=== PATIENT | male | born 1960 | race Caucasian/White ===

== ENCOUNTER 2019-02-01 20:02 | Emergency (ER) | payer BC ==
[2019-02-01] MEDS ORDERED: Sodium Chloride 0.9% 2.5 ML Syringe FLUSH PRN (20:10)
[2019-02-01] MEDS ORDERED: Sodium Chloride 0.9% 10 ML Syringe FLUSH PRN (20:10)
[2019-02-01] MEDS ORDERED: Sodium Chloride 0.9% 1,000 ML IV ONE ×2 (20:12→20:39)
[2019-02-01] MEDS ORDERED: Aspirin 81 MG Tab.Chew PO ONE (20:12)
--- NOTE | 2019-02-01 20:16 | EDM.PDOC ---
ED HPI GENERAL MEDICAL PROBLEM - General Stated Complaint: PT COLLAPSED Time Seen by Provider: 02/01/19 20:03 - History of Present Illness INITIAL COMMENTS - FREE TEXT/NARRATIVE: HISTORY AND PHYSICAL: History of present illness: The patient is a 58-year-old male who follows at [facility] with Dr. Oakley and has a history of hypertension and hypercholesterolemia and presents via EMS after having an episode of chest discomfort which radiated to his neck and his left arm associated with left upper extremity and lower extremity tingling without weakness and lightheadedness. He says that he had a perfectly normal day with no systemic issues and ate normally throughout the day and the symptoms started approximately half an hour ago. He did not pass out or blacked out but did feel like he might do that. He currently has no chest pain no arm or leg tingling numbness or weakness and no neck pain. He says he never had pain in his back or abdomen he had no nausea no vomiting no recent diarrhea or abdominal issues. He does not smoke and only occasionally drinks and has no drug use. He has no significant family history for cardiac disease. He's had no recent changes in his blood pressure medications and says that throughout the day yet today he had no fevers chills no recent trauma and 8ate and drink normally with normal urine output. He's had no black or bloody stools recently and no GI history. He currently is asymptomatic in the ED despite his hypotension. EMS did an Accu-Chek in the field which was within normal limits. As no neck or back pain and never passed out blacked out or had any trauma with tonight's events nor did he fall. He currently has no chest pain no shortness of breath and says that he feels at his baseline. The patient says he is very active and has never had chest pain palpitations or shortness of breath with activity and he had no palpitations this evening. He says he has never had any cardiac testing in the past. The patient says he did not take any extra of his blood pressure medication today nor has his provider in the clinic change that dosing recently. Review of systems: As per history of present illness and below otherwise all systems reviewed and negative. Past medical history: As per history of present illness and as reviewed below otherwise noncontributory. Surgical history: As per history of present illness and as reviewed below otherwise noncontributory. Social history: No reported history of drug or alcohol abuse. Family history: As per history of present illness and as reviewed below otherwise noncontributory. Physical exam: General: Well-developed well-nourished thin man who is nontoxic and vital signs are noted by me. He speaking clearly and easily in the ED without distress HEENT: Atraumatic, normocephalic, pupils reactive, negative for conjunctival pallor or scleral icterus, mucous membranes moist, throat clear, neck supple, nontender, trachea midline. Lungs: Clear to auscultation, breath sounds equal bilaterally, chest nontender. Heart: S1S2, regular, negative for clicks, rubs, or JVD. Abdomen: Soft, nondistended, nontender. Negative for masses or hepatosplenomegaly. Negative for costovertebral tenderness. Pelvis: Stable nontender. Genitourinary: Deferred. Rectal: Deferred. Extremities: Atraumatic, negative for cords or calf pain. Neurovascular unremarkable. No pedal edema or leg asymmetry Neuro: Awake, alert, oriented. Cranial nerves II through XII unremarkable. Cerebellum unremarkable. Motor and sensory unremarkable throughout. Exam nonfocal. Diagnostics: EKG x 2 and rhythm strip CBC CMP INR troponin x 2,TSH lactic acid chest x-ray CT head Therapeutics: IV O2 monitor IV fluids aspirin Zofran Patient absolutely denies any black or bloody stools and has no GI history. He again denies any history of trauma with these events as well as in the last several days. He has not had any vomiting diarrhea fevers or chills or any systemic issues prior to 20 minutes for coming to the ER. His blood pressure is responding to IV fluid bolus and his EKG and rhythm strip reveal a slight prolongation of the HI consistent with a slight first-degree AV block. He is bradycardic. Nursing alerted me that the patient was having an episode of new chest pain which was accompanied with some discomfort in his back and he seemed to be diaphoretic and shaky with that. Patient has remained on the hypotensive side with systolics in the 70s and 80s despite 2 L of fluid. An EKG was performed with this episode and reviewed by me which shows no acute STEMI changes. On my reevaluation of him he currently is not having any chest pain or back pain and feels back to his baseline. He is not diaphoretic or shaky. Will proceed to do CTA of the chest abdomen and pelvis and he is aware as is his at bedside that all tests at this point are coming up negative but that he will still be admitted to the hospital pending the results of the CTA. Patient is aware that he will be going to CT scan and now says he feels somewhat nauseated so I will order Zofran. We'll continue with IV fluids Patient has returned from CAT scan and he says he just feels generalized weakness. After 2-1/2 L of fluid he has not made any urine and I've encouraged him to please give me a urine sample so we can ascertain whether or not dehydration is a component of this area we will continue to give him an IV fluid rate until we get the CTAs results back. 2220: CTA scan results are pending but I did discuss this case with our hospitalist Dr. Robert who is also lost about what this could be. I told him I will recontact him if the second troponin UA or CT scans show any significant findings but we will plan on ICU admission for unclear etiology of these symptoms. He states agreement. 2248: After the CTA results were called to me by the radiologist Dr. Ordoñez I immediately contacted [facility], as [facility] does not have a CV surgeon, and spoke with the cardiothoracic surgeon Dr. Villeda about this case. He agrees that the patient needs emergent transfer as he has a type A dissection. I am working on flight team and these test results were conveyed to the patient and family at bedside. They are aware of the severity of this and that this is a life-threatening problem that needs emergent intervention. We will continue to manage the patient's symptoms. The patient and family are aware of the difficulties we are having with getting a flight team and the weather as helicopter cannot travel. Dr Krishnamurthy will be updated via One call about the patient's ETA. Critical care time including procedures:40min Impression: Type A aortic dissection Definitive disposition and diagnosis as appropriate pending reevaluation and review of above. neck;head Pain Score (Numeric/FACES): 3 - Related Data Allergies Allergy/AdvReac Type Severity Reaction Status Date / Time No Known Allergies Allergy Verified 12/13/15 11:17 Home Meds: Home Meds Famotidine 20 mg PO DAILY 12/13/15 [History] Lisinopril/Hydrochlorothiazide [Lisinopril-Hctz 20-12.5 mg Tab] 1 tab PO DAILY 12/13/15 [History] atorvaSTATin Calcium [Atorvastatin Calcium] 10 mg PO DAILY 12/13/15 [History] Past Medical History HEENT History: Reports: None Cardiovascular History: Reports: High Cholesterol, Hypertension Respiratory History: Reports: None Gastrointestinal History: Genitourinary History: Reports: None Neurological History: Reports: None Psychiatric History: Reports: None Endocrine/Metabolic History: Reports: None Hematologic History: Reports: None Immunologic History: Reports: None Oncologic (Cancer) History: Reports: None Dermatologic History: Reports: None - Past Surgical History GI Surgical History: Reports: Hernia, Inguinal Musculoskeletal Surgical History: Reports: Arthroscopic Knee ED ROS GENERAL - Review of Systems Review Of Systems: ROS reveals no pertinent complaints other than HPI. ED EXAM, GENERAL - Physical Exam Exam: See Below (see Dictation) Course - Vital Signs Last Recorded V/S: Last Vital Signs Temp 36.1 C 02/01/19 20:02 Pulse 63 02/01/19 22:16 Resp 16 02/01/19 22:16 BP 91/42 L 02/01/19 22:16 Pulse Ox 97 02/01/19 20:43 - Orders/Labs/Meds Orders: Active Orders 24 hr Category Date Time Status Cardiac Monitoring [RC] . DIRECTED Care 02/01/19 20:10 Active Communication Order [RC] STAT Care 02/01/19 20:28 Active Communication Order [RC] STAT Care 02/01/19 20:28 Active EKG Documentation Completion [RC] STAT Care 02/01/19 20:10 Active Oxygen Therapy, ED [RC] ASDIRECTED Care 02/01/19 20:10 Active Pulse Oximetry [RC] ASDIRECTED Care 02/01/19 20:10 Active Ang Chest [CT] Stat Exams 02/01/19 21:26 Ordered Ang Pelvis [CT] Stat Exams 02/01/19 21:26 Ordered TROPONIN I [CHEM] Stat Lab 02/01/19 22:42 Received UA RFX MACKENZIE AND CULT IF INDIC [URIN] Stat Lab 02/01/19 20:11 Ordered Sodium Chloride 0.9% [Normal Saline] 1,000 ml Med 02/01/19 22:15 Active IV ASDIRECTED Sodium Chloride 0.9% [Normal Saline] 500 ml Med 02/01/19 21:30 Active IV .BOLUS Sodium Chloride 0.9% [Saline Flush] Med 02/01/19 20:10 Active 10 ml FLUSH ASDIRECTED PRN Sodium Chloride 0.9% [Saline Flush] Med 02/01/19 20:10 Active 2.5 ml FLUSH ASDIRECTED PRN Saline Lock Insert [OM.PC] Stat Oth 02/01/19 20:10 Ordered Medication Orders Sodium Chloride (Normal Saline) 500 mls @ 999 mls/hr IV .BOLUS KASSIE Last Admin: 02/01/19 21:34 Dose: 999 mls/hr Sodium Chloride (Normal Saline) 1,000 mls @ 250 mls/hr IV ASDIRECTED KASSIE Last Admin: 02/01/19 22:13 Dose: 250 mls/hr Sodium Chloride (Saline Flush) 10 ml FLUSH ASDIRECTED PRN PRN Reason: Keep Vein Open Last Admin: 02/01/19 21:41 Dose: 10 ml Sodium Chloride (Saline Flush) 2.5 ml FLUSH ASDIRECTED PRN PRN Reason: Keep Vein Open Last Admin: 02/01/19 21:42 Dose: 2.5 ml Labs: Laboratory Tests 02/01/19 02/01/19 02/01/19 Range/Units 20:10 20:10 20:10 WBC 8.16 (4.0-11.0) K/uL RBC 3.92 L (4.50-5.90) M/uL Hgb 12.3 L (13.0-17.0) g/dL Hct 36.2 L (38.0-50.0) % MCV 92.3 (80.0-98.0) fL MCH 31.4 (27.0-32.0) pg MCHC 34.0 (31.0-37.0) g/dL RDW Std Deviation 42.7 (28.0-62.0) fl RDW Coeff of Daniel 13 (11.0-15.0) % Plt Count 198 (150-400) K/uL MPV 10.50 (7.40-12.00) fL Neut % (Auto) 45.8 L (48.0-80.0) % Lymph % (Auto) 39.1 (16.0-40.0) % Saline % (Auto) 10.8 (0.0-15.0) % Eos % (Auto) 3.8 (0.0-7.0) % Baso % (Auto) 0.5 (0.0-1.5) % Neut # (Auto) 3.7 (1.4-5.7) K/uL Lymph # (Auto) 3.2 H (0.6-2.4) K/uL Saline # (Auto) 0.9 H (0.0-0.8) K/uL Eos # (Auto) 0.3 (0.0-0.7) K/uL Baso # (Auto) 0.0 (0.0-0.1) K/uL Nucleated RBC % 0.0 /100WBC Nucleated RBCs # 0 K/uL INR 1.03 Lactate 1.5 (0.20-2.00) mmol/L Sodium (136-148) mmol/L Potassium (3.5-5.1) mmol/L Chloride (98-107) mmol/L Carbon Dioxide (21.0-32.0) mmol/L BUN (7.0-18.0) mg/dL Creatinine (0.8-1.3) mg/dL Est Cr Clr Drug Dosing mL/min Estimated GFR (MDRD) ml/min Glucose (74-106) mg/dL Calcium (8.5-10.1) mg/dL Total Bilirubin (0.2-1.0) mg/dL AST (15-37) IU/L ALT (14-63) IU/L Alkaline Phosphatase (46-116) U/L Troponin I (0.000-0.056) ng/mL Total Protein (6.4-8.2) g/dL Albumin (3.4-5.0) g/dL Globulin (2.6-4.0) g/dL Albumin/Globulin Ratio (0.9-1.6) TSH 3rd Generation (0.36-3.74) uIU/mL 02/01/19 Range/Units 20:10 WBC (4.0-11.0) K/uL RBC (4.50-5.90) M/uL Hgb (13.0-17.0) g/dL Hct (38.0-50.0) % MCV (80.0-98.0) fL MCH (27.0-32.0) pg MCHC (31.0-37.0) g/dL RDW Std Deviation (28.0-62.0) fl RDW Coeff of Daniel (11.0-15.0) % Plt Count (150-400) K/uL MPV (7.40-12.00) fL Neut % (Auto) (48.0-80.0) % Lymph % (Auto) (16.0-40.0) % Saline % (Auto) (0.0-15.0) % Eos % (Auto) (0.0-7.0) % Baso % (Auto) (0.0-1.5) % Neut # (Auto) (1.4-5.7) K/uL Lymph # (Auto) (0.6-2.4) K/uL Saline # (Auto) (0.0-0.8) K/uL Eos # (Auto) (0.0-0.7) K/uL Baso # (Auto) (0.0-0.1) K/uL Nucleated RBC % /100WBC Nucleated RBCs # K/uL INR Lactate (0.20-2.00) mmol/L Sodium 143 (136-148) mmol/L Potassium 3.7 (3.5-5.1) mmol/L Chloride 105 (98-107) mmol/L Carbon Dioxide 28.1 (21.0-32.0) mmol/L BUN 18 (7.0-18.0) mg/dL Creatinine 1.0 (0.8-1.3) mg/dL Est Cr Clr Drug Dosing 88.38 mL/min Estimated GFR (MDRD) > 60.0 ml/min Glucose 97 (74-106) mg/dL Calcium 8.6 (8.5-10.1) mg/dL Total Bilirubin 0.3 (0.2-1.0) mg/dL AST 17 (15-37) IU/L ALT 19 (14-63) IU/L Alkaline Phosphatase 65 (46-116) U/L Troponin I < 0.050 (0.000-0.056) ng/mL Total Protein 6.1 L (6.4-8.2) g/dL Albumin 3.2 L (3.4-5.0) g/dL Globulin 2.9 (2.6-4.0) g/dL Albumin/Globulin Ratio 1.1 (0.9-1.6) TSH 3rd Generation 2.00 (0.36-3.74) uIU/mL Meds: Medications Generic Name Dose Route Start Last Admin Trade Name Juwanq PRN Reason Stop Dose Admin Sodium Chloride 500 mls @ 999 mls/hr 02/01/19 21:30 02/01/19 21:34 Normal Saline IV 999 mls/hr .BOLUS KASSIE Administration Sodium Chloride 1,000 mls @ 250 mls/hr 02/01/19 22:15 02/01/19 22:13 Normal Saline IV 250 mls/hr ASDIRECTED KASSIE Administration Sodium Chloride 10 ml 02/01/19 20:10 02/01/19 21:41 Saline Flush FLUSH 10 ml ASDIRECTED PRN Administration Keep Vein Open Sodium Chloride 2.5 ml 02/01/19 20:10 02/01/19 21:42 Saline Flush FLUSH 2.5 ml ASDIRECTED PRN Administration Keep Vein Open Discontinued Medications Generic Name Dose Route Start Last Admin Trade Name Juwanq PRN Reason Stop Dose Admin Aspirin 324 mg 02/01/19 20:12 02/01/19 20:20 Aspirin PO 02/01/19 20:13 324 mg ONETIME ONE Administration Sodium Chloride 1,000 mls @ 999 mls/hr 02/01/19 20:12 02/01/19 20:20 Normal Saline IV 02/01/19 21:12 999 mls/hr STAT ONE Administration Sodium Chloride 1,000 mls @ 999 mls/hr 02/01/19 20:39 02/01/19 20:41 Normal Saline IV 02/01/19 21:39 999 mls/hr STAT ONE Administration Iopamidol 100 ml 02/01/19 22:08 02/01/19 22:09 Isovue Multipack-370 (76%) IVPUSH 02/01/19 22:09 100 ml ONETIME ONE Administration Ondansetron HCl 4 mg 02/01/19 21:30 02/01/19 21:34 Zofran IVPUSH 02/01/19 21:31 4 mg ONETIME ONE Administration Departure - Departure Time of Disposition: 23:08 Disposition: DC/Tfer to Acute Hospital 02 Condition: Critical Clinical Impression: Aortic dissection Qualifiers: Aortic location: thoracoabdominal aorta Qualified Code(s): I71.03 - Dissection of thoracoabdominal aorta - Discharge Information Referrals: PCP,None [Primary Care Provider] - - My Orders Last 24 Hours: My Active Orders 02/01/19 20:10 Cardiac Monitoring [RC] . DIRECTED EKG Documentation Completion [RC] STAT Oxygen Therapy, ED [RC] ASDIRECTED Pulse Oximetry [RC] ASDIRECTED Sodium Chloride 0.9% [Saline Flush] 10 ml FLUSH ASDIRECTED PRN Sodium Chloride 0.9% [Saline Flush] 2.5 ml FLUSH ASDIRECTED PRN Saline Lock Insert [OM.PC] Stat 02/01/19 20:11 UA RFX MACKENZIE AND CULT IF INDIC [URIN] Stat 02/01/19 20:28 Communication Order [RC] STAT Communication Order [RC] STAT 02/01/19 21:26 Ang Chest [CT] Stat Ang Pelvis [CT] Stat 02/01/19 21:30 Sodium Chloride 0.9% [Normal Saline] 500 ml IV .BOLUS 02/01/19 22:15 Sodium Chloride 0.9% [Normal Saline] 1,000 ml IV ASDIRECTED 02/01/19 22:42 TROPONIN I [CHEM] Stat - Assessment/Plan Last 24 Hours: My Active Orders 02/01/19 20:10 Cardiac Monitoring [RC] . DIRECTED EKG Documentation Completion [RC] STAT Oxygen Therapy, ED [RC] ASDIRECTED Pulse Oximetry [RC] ASDIRECTED Sodium Chloride 0.9% [Saline Flush] 10 ml FLUSH ASDIRECTED PRN Sodium Chloride 0.9% [Saline Flush] 2.5 ml FLUSH ASDIRECTED PRN Saline Lock Insert [OM.PC] Stat 02/01/19 20:11 UA RFX MACKENZIE AND CULT IF INDIC [URIN] Stat 02/01/19 20:28 Communication Order [RC] STAT Communication Order [RC] STAT 02/01/19 21:26 Ang Chest [CT] Stat Ang Pelvis [CT] Stat 02/01/19 21:30 Sodium Chloride 0.9% [Normal Saline] 500 ml IV .BOLUS 02/01/19 22:15 Sodium Chloride 0.9% [Normal Saline] 1,000 ml IV ASDIRECTED 02/01/19 22:42 TROPONIN I [CHEM] Stat
[2019-02-01 20:54] LABS: BLOOD UREA NITROGEN,BUN 18 mg/dL (7.0-18.0); CARBON DIOXIDE,CO2 28.1 mmol/L (21.0-32.0); CHLORIDE,CL 105 mmol/L (98-107); GLUCOSE RANDOM 97 mg/dL (74-106); POTASSIUM,K 3.7 mmol/L (3.5-5.1); SODIUM,NA 143 mmol/L (136-148)
--- NOTE | 2019-02-01 20:58 | CT ---
INDICATION: Left-sided paresthesia TECHNIQUE: Head CT without contrast. COMPARISON: None. FINDINGS: CSF spaces: Within normal limits for age. Brain parenchyma: Normal ruiz-white junction. No sign of mass, hemorrhage, or midline shift. Skull base and calvarium: The visualized paranasal sinuses and mastoid air cells demonstrate no acute or significant findings. The visualized orbits are grossly unremarkable. No skull fractures. IMPRESSION: No acute abnormality. Please note that all CT scans at this facility use dose modulation, iterative reconstruction, and/or weight-based dosing when appropriate to reduce radiation dose to as low as reasonably achievable. Dictated by Diana Ordoñez MD @ Feb 01 2019 8:57PM Signed by Dr. Diana Ordoñez @ Feb 01 2019 8:57PM
--- NOTE | 2019-02-01 21:04 | CR ---
INDICATION: Chest pain and dyspnea TECHNIQUE: Chest 1 view COMPARISON: None FINDINGS: Cardiovascular and mediastinum: Heart size and vasculature are normal in caliber and appearance. Lungs and pleural spaces: Lungs are clear. No sign of infiltrate or mass. No sign of pleural effusion. No pneumothorax. Bones and soft tissues: No significant findings. IMPRESSION: Unremarkable single view chest. Dictated by Florentino Catsañeda MD @ Feb 01 2019 9:02PM Signed by Dr. Florentino Castañeda @ Feb 01 2019 9:03PM
[2019-02-01] MEDS ORDERED: Ondansetron 4 MG/2 ML SDV IVPUSH ONE (21:30)
[2019-02-01] MEDS ORDERED: Sodium Chloride 0.9% 500 ML IV SCH (21:30)
[2019-02-01] MEDS ORDERED: Iopamidol 755 MG/ML 500 ML Multipack Bottle IVPUSH ONE (22:08)
[2019-02-01] MEDS ORDERED: Sodium Chloride 0.9% 1,000 ML IV SCH (22:15)
[2019-02-02 00:22] VITALS: BP 91/46; PULSE 62
--- NOTE | 2019-02-02 12:31 | CT ---
INDICATION: Chest pain TECHNIQUE: CT chest without contrast and CT chest, abdomen and pelvis acquired with IV contrast, dissection protocol. COMPARISON: None FINDINGS: Vascular structures: Type A dissection. The dissection starts at the aortic root. Ascending aorta is dilated to 5.9 x 7.1 cm. The dissection extends into the innominate and right common carotid arteries as well as the proximal left common carotid artery, the left subclavian artery, and the left axillary artery. The dissection continues into the descending thoracic aorta and into the abdominal aorta. The dissection involves the proximal (less than 1 cm) portions of the celiac axis and superior mesenteric artery. The remainder of those arteries are supplied by the true lumen of the dissection. The left renal artery arises from the false lumen. The right renal artery arises from the true lumen. The inferior mesenteric artery appears to arise from the true lumen. The dissection continues into the left common and external iliac arteries. The left femoral artery is not affected nor is the right common iliac, right external iliac, or bilateral internal iliac arteries. There is no hemopericardium. The cardiac size is normal. The lungs and pleural spaces are clear. Simple cysts are seen on both kidneys. The liver, gallbladder, spleen, adrenal glands, pancreas, bowel, and urinary bladder are normal in appearance. There is no free air or free fluid. No acute osseous abnormality. IMPRESSION: Type A dissection as described in detail above. These findings were discussed with Dr. Rosen at 10:45 p.m. on February 01, 2019. Please note that all CT scans at this facility use dose modulation, iterative reconstruction, and/or weight-based dosing when appropriate to reduce radiation dose to as low as reasonably achievable. Dictated by Diana Ordoñez MD @ Feb 01 2019 10:33PM Signed by: Diana Ordoñez MD @02/01/2019 10:56:05 PM (Electronic Signature) MTDD
== END 2019-02-01 23:41 ==
LOC: MW.ED 20:02
DX: I71.03 Dissection of thoracoabdominal aorta (principal); I10 Essential (primary) hypertension; E78.00 Pure hypercholesterolemia, unspecified; Z79.899 Other long term (current) drug therapy
CPT/HCPCS: 36415; 70450; 71045; 71275; 72191; 74175; 80053; 81001; 83605; 84443; 84484; 85025; 85610; 93005; 96361; 96374; 99291; 99292; A9270; J2405; J7040; Q9967; 99285

== ENCOUNTER 2019-02-14 12:15 | Observation (INO) | payer BC ==
[2019-02-14] MEDS ORDERED: Sodium Chloride 0.9% 1,000 ML IV ONE (12:31)
[2019-02-14 12:53] LABS: BLOOD UREA NITROGEN,BUN 22 mg/dL (7.0-18.0); CARBON DIOXIDE,CO2 26.4 mmol/L (21.0-32.0); CHLORIDE,CL 95 mmol/L (98-107); GLUCOSE RANDOM 129 mg/dL (74-106); POTASSIUM,K 5.1 mmol/L (3.5-5.1); SODIUM,NA 129 mmol/L (136-148)
--- NOTE | 2019-02-14 13:06 | CR ---
Indication: Shortness of breath. Recent dissection Technique: Single AP portable view of the chest was obtained. Comparison: February 01, 2019. Findings: Median sternotomy wires are identified. The heart is enlarged. Bilateral pleural effusions are identified, greater on the left than the right. The right hemidiaphragm is elevated, new. No pneumothorax is identified. Impression: No elevation of the right hemidiaphragm. Bilateral lower lobe atelectasis and/or infiltrates and bilateral pleural effusions, greater on the left than the right. Increasing cardiomegaly, which may be due to technical differences Dictated by Rebecca Mathews MD @ Feb 14 2019 1:03PM Signed by Dr. Rebecca Mathews @ Feb 14 2019 1:05PM
--- NOTE | 2019-02-14 13:06 | EDM.PDOC ---
ED HPI GENERAL MEDICAL PROBLEM - General Chief Complaint: Respiratory Problem Stated Complaint: TROUBLE BREATHING Time Seen by Provider: 02/14/19 12:21 Source of Information: Reports: Patient History Limitations: Reports: No Limitations - History of Present Illness INITIAL COMMENTS - FREE TEXT/NARRATIVE: HISTORY AND PHYSICAL: History of present illness: Patient is a 58-year-old male who presents to the ED today with concern of shortness of breath. Patient was seen in our ED on 02/01/19 and was life flighted to [facility] for a Type A Aortic Dissection and had emergent surgery upon arrival to [place]. Patient states that he was discharged on . Patient states since he has been discharged, he has noticed that he is more shortness of breath which is worse with moving/waling and exertion. Patient states he used to be able to walk around his house right after discharge , and now becomes more short of breath walking to the bathroom. Patient states he does notice he also has to sleep sitting up because he does become short of breath when he lays back. Patient denies any chest pain or any other symptoms or concerns. Patient denies fever, chills, chest pain, or cough. Denies headache, neck stiff ness, change in vision, syncope, or near syncope. Denies nausea, vomiting, abdominal pain, diarrhea, constipation, or dysuria. Has not noted any blood in urine or stool. Patient has been eating and drinking appropriately. Review of systems: As per history of present illness and below otherwise all systems reviewed and negative. Past medical history: As per history of present illness and as reviewed below otherwise noncontributory. Surgical history: As per history of present illness and as reviewed below otherwise noncontributory. Social history: See social history for further information Family history: As per history of present illness and as reviewed below otherwise noncontributory. Physical exam: General: Patient is alert, oriented, and in no acute distress. Patient sitting comfortably on exam table. HEENT: Atraumatic, normocephalic, pupils equal and reactive bilaterally, negative for conjunctival pallor or scleral icterus, mucous membranes moist, TMs normal bilaterally, throat clear, neck supple, nontender, trachea midline. No drooling or trismus noted. No meningeal signs. No hot potato voice noted. Lungs: Diminished but clear to auscultation, breath sounds equal bilaterally, chest nontender. Does become short of breath when laying flat. Heart: Distant, but S1S2, regular rate and rhythm without overt murmur Abdomen: Incisions consistent with recent surgical history. No erythema or drainage from incision sites. Soft, nondistended, nontender. Negative for masses or hepatosplenomegaly. Negative for costovertebral tenderness. Pelvis: Stable nontender. Genitourinary: Deferred. Rectal: Deferred. Skin: Intact, warm, dry. No lesions or rashes noted. Extremities: Atraumatic, negative for cords or calf pain. Neurovascular unremarkable. PATSY hose in place. Neuro: Awake, alert, oriented. Cranial nerves II through XII unremarkable. Cerebellum unremarkable. Motor and sensory unremarkable throughout. Exam nonfocal. Notes: Dr. Rucker verbally involved in patient care. I did call him personally speak to patient's cardiothoracic surgeon, Dr. Villeda and update him on lab work and results today. He states that the troponin as well as the CHF is quite common for the surgery patient had. Per Dr. Villeda's request would be to receive an ECHO and he has no other recommendations or concerns. Dr. Key consulted on patient and has come in to personally see the patient. Will admit to observation Voices understanding and is agreeable to plan of care. Denies any further questions or concerns at this time. Diagnostics: CBC, CMP, UA, chest x-ray, EKG, troponin, BNP Therapeutics: Lasix, DuoNeb, Solu-Medrol Impression: Congestive Heart Failure exacerbation Infiltrates on CXR Leukocytosis Elevated troponin Bilateral pleural effusions Transaminitis Plan: 1. Admit to observation to Dr. Key. Definitive disposition and diagnosis as appropriate pending reevaluation and review of above. - Related Data Allergies Allergy/AdvReac Type Severity Reaction Status Date / Time No Known Allergies Allergy Verified 02/14/19 12:29 Home Meds: Home Meds Famotidine 20 mg PO BID 12/13/15 [History] atorvaSTATin Calcium [Atorvastatin Calcium] 10 mg PO BEDTIME 12/13/15 [History] Acetaminophen [Tylenol] 325 mg PO Q4HR PRN 02/14/19 [History] Aspirin 81 mg PO DAILY 02/14/19 [History] Ferrous Sulfate 324 mg PO DAILY 02/14/19 [History] Metoprolol Tartrate 37.5 mg PO BID 02/14/19 [History] Warfarin [Coumadin] 2.5 mg PO DAILY 02/14/19 [History] cefUROXime axetil [Cefuroxime] 500 mg PO BID 02/14/19 [History] traMADol [Ultram] 50 mg PO Q4H PRN 02/14/19 [History] Past Medical History HEENT History: Reports: None Cardiovascular History: Reports: High Cholesterol, Hypertension Respiratory History: Reports: None Gastrointestinal History: Genitourinary History: Reports: None Neurological History: Reports: None Psychiatric History: Reports: None Endocrine/Metabolic History: Reports: None Hematologic History: Reports: None Immunologic History: Reports: None Oncologic (Cancer) History: Reports: None Dermatologic History: Reports: None - Infectious Disease History Infectious Disease History: Reports: None - Past Surgical History Head Surgeries/Procedures: Reports: None GI Surgical History: Reports: Hernia, Inguinal Musculoskeletal Surgical History: Reports: Arthroscopic Knee Social & Family History - Family History Family Medical History: Noncontributory - Tobacco Use Smoking Status *Q: Never Smoker - Recreational Drug Use Recreational Drug Use: No ED ROS GENERAL - Review of Systems Review Of Systems: ROS reveals no pertinent complaints other than HPI. ED EXAM, GENERAL - Physical Exam Exam: See Below (See dictation) Course - Vital Signs Last Recorded V/S: Last Vital Signs Temp 96.7 F 02/14/19 12:25 Pulse 92 02/14/19 14:30 Resp 20 02/14/19 14:30 BP 120/77 02/14/19 14:30 Pulse Ox 96 02/14/19 14:30 - Orders/Labs/Meds Orders: Active Orders 24 hr Category Date Time Status Admission Status [Patient Status] [ADT] Stat ADT 02/14/19 15:05 Ordered EKG Documentation Completion [RC] STAT Care 02/14/19 12:28 Active RT Aerosol Therapy [RC] ASDIRECTED Care 02/14/19 14:37 Active UA RFX MACKENZIE AND CULT IF INDIC [URIN] Stat Lab 02/14/19 12:28 Ordered Labs: Laboratory Tests 02/14/19 02/14/19 02/14/19 Range/Units 12:20 12:20 12:20 WBC 21.83 H (4.0-11.0) K/uL RBC 3.29 L (4.50-5.90) M/uL Hgb 10.0 L (13.0-17.0) g/dL Hct 30.4 L (38.0-50.0) % MCV 92.4 (80.0-98.0) fL MCH 30.4 (27.0-32.0) pg MCHC 32.9 (31.0-37.0) g/dL RDW Std Deviation 45.3 (28.0-62.0) fl RDW Coeff of Daniel 14 (11.0-15.0) % Plt Count 536 H (150-400) K/uL MPV 9.50 (7.40-12.00) fL Add Manual Diff YES Neutrophils % (Manual) 86 H (48.0-80.0) % Lymphocytes % (Manual) 7 L (16.0-40.0) % Monocytes % (Manual) 7 (0.0-15.0) % Nucleated RBC % 0.0 /100WBC Absolute Seg Neuts 18.8 H (1.4-5.7) Lymphocytes # (Manual) 1.5 (0.6-2.4) Monocytes # (Manual) 1.5 H (0.0-0.8) Nucleated RBCs # 0 K/uL INR 2.87 Sodium 129 L (136-148) mmol/L Potassium 5.1 (3.5-5.1) mmol/L Chloride 95 L (98-107) mmol/L Carbon Dioxide 26.4 (21.0-32.0) mmol/L BUN 22 H (7.0-18.0) mg/dL Creatinine 1.1 (0.8-1.3) mg/dL Est Cr Clr Drug Dosing 82.72 mL/min Estimated GFR (MDRD) > 60.0 ml/min Glucose 129 H (74-106) mg/dL Calcium 8.5 (8.5-10.1) mg/dL Total Bilirubin 0.5 (0.2-1.0) mg/dL AST 70 H (15-37) IU/L ALT 88 H (14-63) IU/L Alkaline Phosphatase 134 H (46-116) U/L Troponin I 0.272 H* (0.000-0.056) ng/mL B-Natriuretic Peptide (<100) PG/ML Total Protein 6.8 (6.4-8.2) g/dL Albumin 2.4 L (3.4-5.0) g/dL Globulin 4.4 H (2.6-4.0) g/dL Albumin/Globulin Ratio 0.6 L (0.9-1.6) 02/14/19 Range/Units 12:20 WBC (4.0-11.0) K/uL RBC (4.50-5.90) M/uL Hgb (13.0-17.0) g/dL Hct (38.0-50.0) % MCV (80.0-98.0) fL MCH (27.0-32.0) pg MCHC (31.0-37.0) g/dL RDW Std Deviation (28.0-62.0) fl RDW Coeff of Daniel (11.0-15.0) % Plt Count (150-400) K/uL MPV (7.40-12.00) fL Add Manual Diff Neutrophils % (Manual) (48.0-80.0) % Lymphocytes % (Manual) (16.0-40.0) % Monocytes % (Manual) (0.0-15.0) % Nucleated RBC % /100WBC Absolute Seg Neuts (1.4-5.7) Lymphocytes # (Manual) (0.6-2.4) Monocytes # (Manual) (0.0-0.8) Nucleated RBCs # K/uL INR Sodium (136-148) mmol/L Potassium (3.5-5.1) mmol/L Chloride (98-107) mmol/L Carbon Dioxide (21.0-32.0) mmol/L BUN (7.0-18.0) mg/dL Creatinine (0.8-1.3) mg/dL Est Cr Clr Drug Dosing mL/min Estimated GFR (MDRD) ml/min Glucose (74-106) mg/dL Calcium (8.5-10.1) mg/dL Total Bilirubin (0.2-1.0) mg/dL AST (15-37) IU/L ALT (14-63) IU/L Alkaline Phosphatase (46-116) U/L Troponin I (0.000-0.056) ng/mL B-Natriuretic Peptide 654 H (<100) PG/ML Total Protein (6.4-8.2) g/dL Albumin (3.4-5.0) g/dL Globulin (2.6-4.0) g/dL Albumin/Globulin Ratio (0.9-1.6) Meds: Medications Discontinued Medications Generic Name Dose Route Start Last Admin Trade Name Alena PRN Reason Stop Dose Admin Albuterol/Ipratropium 3 ml 02/14/19 14:37 02/14/19 15:04 Duoneb 3.0-0.5 Mg/3 Ml NEB 02/14/19 14:38 3 ml ONETIME ONE Administration Furosemide 40 mg 02/14/19 14:37 Lasix IVPUSH 02/14/19 14:38 NOW ONE Sodium Chloride 1,000 mls @ 999 mls/hr 02/14/19 12:31 02/14/19 12:44 Normal Saline IV 02/14/19 13:31 999 mls/hr STAT ONE Administration Methylprednisolone Sodium Succinate 125 mg 02/14/19 14:37 Solu-Medrol IVPUSH 02/14/19 14:38 ONETIME ONE Departure - Departure Time of Disposition: 15:06 Disposition: Refer to Observation Clinical Impression: Infiltrate of lung present on chest x-ray, Pleural effusion, Transaminitis, Elevated troponin Congestive heart failure (CHF) Qualifiers: Heart failure type: unspecified Heart failure chronicity: acute Qualified Code( s): I50.9 - Heart failure, unspecified Leukocytosis Qualifiers: Leukocytosis type: unspecified Qualified Code(s): D72.829 - Elevated white blood cell count, unspecified - Discharge Information Referrals: PCP,None [Primary Care Provider] - Forms: ED Department Discharge - My Orders Last 24 Hours: My Active Orders 02/14/19 12:28 EKG Documentation Completion [RC] STAT UA RFX MACKENZIE AND CULT IF INDIC [URIN] Stat 02/14/19 14:37 RT Aerosol Therapy [RC] ASDIRECTED 02/14/19 15:05 Admission Status [Patient Status] [ADT] Stat - Assessment/Plan Last 24 Hours: My Active Orders 02/14/19 12:28 EKG Documentation Completion [RC] STAT UA RFX MACKENZIE AND CULT IF INDIC [URIN] Stat 02/14/19 14:37 RT Aerosol Therapy [RC] ASDIRECTED 02/14/19 15:05 Admission Status [Patient Status] [ADT] Stat
[2019-02-14] MEDS ORDERED: Furosemide 40 MG/4 ML VIAL IVPUSH ONE (14:37)
[2019-02-14] MEDS ORDERED: methylPREDNISolone Sodium Succinate 125 MG/2 ML SDV IVPUSH ONE (14:37)
[2019-02-14] MEDS ORDERED: Albuterol/Ipratropium 3.0-0.5 MG/3 ML Neb Soln NEB ONE (14:37)
[2019-02-14] MEDS ORDERED: Ondansetron 4 MG/2 ML SDV IVPUSH PRN (15:16)
--- NOTE | 2019-02-14 15:28 | PCM.HP.2 ---
H&P History of Present Illness - General Date of Service: 02/14/19 Admit Problem/Dx: Admission Diagnosis/Problem Admission Diagnosis/Problem Congestive heart failure - History of Present Illness Initial Comments - Free Text/Narative: The patient is a 58 year old male who presented to the ER with increasing shortness of breath. He was seen in our ER on 02/01/19 and flown to [place] for type A aortic dissection and underwent surgical repair. He was discharged from [place] on 02/09/19. Since discharge he has been more weak and getting progressively short of breath but much worse starting yesterday. He was discharged home from the hospital on lipitor, metoprolol, coumadin, and aspirin. He was not on any duirects. The patient denies cardiac issues until the disection, no hx of IA or CHF. The patient denies any underlying lung conditions. He ednorses hot flashes, orthopnea but denies chest pain, abdominal pain, lower extremity edema (has been wearing compression stockings since discharge), chills, or cough. In the ER, workup included labs which showed elevated white count of 22, anemia with hemoglobin of 10, INF of 2.8, hyponatremia of 129, potassium of 5.1, normal kidney function, elevated AST/ALT, elevated troponin of 0.272 and elevated BNP of 654. EKG showed sinus rhythm with PVCs. CXR showed bilateral lower lob atelectasis and/0r infiltrate with bilateral pleural effusion L>R, and increased cardiomegaly. In the ER he was given IVF, 40 mg of Lasix, 125 mg of solumedrol, and duoneb. PCP- Dr. Oakley Cards- Dr. Villeda in [place] - Related Data Allergies/Adverse Reactions: Allergies Allergy/AdvReac Type Severity Reaction Status Date / Time No Known Allergies Allergy Verified 02/14/19 12:29 Home Medications: Home Meds Famotidine 20 mg PO BID 12/13/15 [History] atorvaSTATin Calcium [Atorvastatin Calcium] 10 mg PO BEDTIME 12/13/15 [History] Acetaminophen [Tylenol] 325 mg PO Q4HR PRN 02/14/19 [History] Aspirin 81 mg PO DAILY 02/14/19 [History] Ferrous Sulfate 324 mg PO DAILY 02/14/19 [History] Metoprolol Tartrate 37.5 mg PO BID 02/14/19 [History] Warfarin [Coumadin] 2.5 mg PO DAILY 02/14/19 [History] cefUROXime axetil [Cefuroxime] 500 mg PO BID 02/14/19 [History] traMADol [Ultram] 50 mg PO Q4H PRN 02/14/19 [History] Past Medical History HEENT History: Reports: None Cardiovascular History: Reports: High Cholesterol, Hypertension. Denies: IA Other Cardiovascular History: Type A aortic dissection-repaired 01/2019 Respiratory History: Reports: None Gastrointestinal History: Reports: GERD Genitourinary History: Reports: None Neurological History: Reports: None Psychiatric History: Reports: None Endocrine/Metabolic History: Reports: None Hematologic History: Reports: None Immunologic History: Reports: None Oncologic (Cancer) History: Reports: None Dermatologic History: Reports: None - Infectious Disease History Infectious Disease History: Reports: None - Past Surgical History Head Surgeries/Procedures: Reports: None GI Surgical History: Reports: Hernia, Inguinal Musculoskeletal Surgical History: Reports: Arthroscopic Knee Social & Family History - Family History Family Medical History: Noncontributory - Tobacco Use Smoking Status *Q: Never Smoker - Recreational Drug Use Recreational Drug Use: No H&P Review of Systems - Review of Systems: Review Of Systems: See Below General: Reports: No Symptoms HEENT: Reports: No Symptoms Pulmonary: Reports: Shortness of Breath. Denies: Cough Cardiovascular: Reports: Dyspnea on Exertion, Orthopnea. Denies: Chest Pain, Edema Gastrointestinal: Reports: No Symptoms Genitourinary: Reports: No Symptoms Musculoskeletal: Reports: No Symptoms Skin: Reports: No Symptoms Psychiatric: Reports: No Symptoms Neurological: Reports: No Symptoms Hematologic/Lymphatic: Reports: No Symptoms Immunologic: Reports: No Symptoms Exam - Exam Exam: See Below - Vital Signs Vital Signs: Last Vital Signs Temp 96.7 F 02/14/19 12:25 Pulse 92 02/14/19 14:30 Resp 20 02/14/19 14:30 BP 120/77 02/14/19 14:30 Pulse Ox 96 02/14/19 14:30 Weight: 83.007 kg - Exam General: Alert, Oriented, Cooperative HEENT: Conjunctiva Clear, EOMI, Mucosa Moist & [place], Posterior Pharynx Clear, Pupils Equal, Pupils Reactive Lungs: Clear to Auscultation, Normal Respiratory Effort Cardiovascular: Regular Rate, Regular Rhythm GI/Abdominal Exam: Normal Bowel Sounds, Soft, Non-Tender, No Distention Extremities: No Pedal Edema Skin: Warm, Dry Neuro Extensive - Mental Status: Alert, Oriented x3 Psychiatric: Alert, Normal Affect, Normal Mood - Patient Data Lab Results Last 24 hrs: Laboratory Results - last 24 hr 02/14/19 02/14/19 02/14/19 Range/Units 12:20 12:20 12:20 WBC 21.83 H (4.0-11.0) K/uL RBC 3.29 L (4.50-5.90) M/uL Hgb 10.0 L (13.0-17.0) g/dL Hct 30.4 L (38.0-50.0) % MCV 92.4 (80.0-98.0) fL MCH 30.4 (27.0-32.0) pg MCHC 32.9 (31.0-37.0) g/dL RDW Std Deviation 45.3 (28.0-62.0) fl RDW Coeff of Daniel 14 (11.0-15.0) % Plt Count 536 H (150-400) K/uL MPV 9.50 (7.40-12.00) fL Add Manual Diff YES Neutrophils % (Manual) 86 H (48.0-80.0) % Lymphocytes % (Manual) 7 L (16.0-40.0) % Monocytes % (Manual) 7 (0.0-15.0) % Nucleated RBC % 0.0 /100WBC Absolute Seg Neuts 18.8 H (1.4-5.7) Lymphocytes # (Manual) 1.5 (0.6-2.4) Monocytes # (Manual) 1.5 H (0.0-0.8) Nucleated RBCs # 0 K/uL INR 2.87 Sodium 129 L (136-148) mmol/L Potassium 5.1 (3.5-5.1) mmol/L Chloride 95 L (98-107) mmol/L Carbon Dioxide 26.4 (21.0-32.0) mmol/L BUN 22 H (7.0-18.0) mg/dL Creatinine 1.1 (0.8-1.3) mg/dL Est Cr Clr Drug Dosing 82.72 mL/min Estimated GFR (MDRD) > 60.0 ml/min Glucose 129 H (74-106) mg/dL Calcium 8.5 (8.5-10.1) mg/dL Total Bilirubin 0.5 (0.2-1.0) mg/dL AST 70 H (15-37) IU/L ALT 88 H (14-63) IU/L Alkaline Phosphatase 134 H (46-116) U/L Troponin I 0.272 H* (0.000-0.056) ng/mL B-Natriuretic Peptide (<100) PG/ML Total Protein 6.8 (6.4-8.2) g/dL Albumin 2.4 L (3.4-5.0) g/dL Globulin 4.4 H (2.6-4.0) g/dL Albumin/Globulin Ratio 0.6 L (0.9-1.6) 02/14/19 Range/Units 12:20 WBC (4.0-11.0) K/uL RBC (4.50-5.90) M/uL Hgb (13.0-17.0) g/dL Hct (38.0-50.0) % MCV (80.0-98.0) fL MCH (27.0-32.0) pg MCHC (31.0-37.0) g/dL RDW Std Deviation (28.0-62.0) fl RDW Coeff of Daniel (11.0-15.0) % Plt Count (150-400) K/uL MPV (7.40-12.00) fL Add Manual Diff Neutrophils % (Manual) (48.0-80.0) % Lymphocytes % (Manual) (16.0-40.0) % Monocytes % (Manual) (0.0-15.0) % Nucleated RBC % /100WBC Absolute Seg Neuts (1.4-5.7) Lymphocytes # (Manual) (0.6-2.4) Monocytes # (Manual) (0.0-0.8) Nucleated RBCs # K/uL INR Sodium (136-148) mmol/L Potassium (3.5-5.1) mmol/L Chloride (98-107) mmol/L Carbon Dioxide (21.0-32.0) mmol/L BUN (7.0-18.0) mg/dL Creatinine (0.8-1.3) mg/dL Est Cr Clr Drug Dosing mL/min Estimated GFR (MDRD) ml/min Glucose (74-106) mg/dL Calcium (8.5-10.1) mg/dL Total Bilirubin (0.2-1.0) mg/dL AST (15-37) IU/L ALT (14-63) IU/L Alkaline Phosphatase (46-116) U/L Troponin I (0.000-0.056) ng/mL B-Natriuretic Peptide 654 H (<100) PG/ML Total Protein (6.4-8.2) g/dL Albumin (3.4-5.0) g/dL Globulin (2.6-4.0) g/dL Albumin/Globulin Ratio (0.9-1.6) Result Diagrams: 02/14/19 12:20 02/14/19 12:20 Problem List Initiated/Reviewed/Updated: Yes Orders Last 24hrs: Active Orders 24 hr Category Date Time Status Admission Status [Patient Status] [ADT] Stat ADT 02/14/19 15:05 Active EKG Documentation Completion [RC] STAT Care 02/14/19 12:28 Active Height and Weight [RC] DAILY Care 02/14/19 15:16 Ordered Intake and Output Strict [RC] ASDIRECTED Care 02/14/19 15:16 Ordered RT Aerosol Therapy [RC] ASDIRECTED Care 02/14/19 14:37 Active RT Incentive Spirometry [RC] Q1HWA Care 02/14/19 15:19 Ordered Telemetry Monitoring [Cardiac Monitoring] [RC] . Care 02/14/19 15:20 Ordered DIRECTED Vital Signs [RC] PER UNIT ROUTINE Care 02/14/19 15:16 Ordered Fluid Restriction [DIET] Diet 02/14/19 Dinner Ordered Heart Healthy Diet [DIET] Diet 02/14/19 Dinner Ordered Echo Comp wo Cont [US] Stat Exams 02/14/19 15:16 Ordered CBC WITH AUTO DIFF [HEME] AM Lab 02/15/19 05:11 Ordered COMPREHENSIVE METABOLIC PN,CMP [CHEM] AM Lab 02/15/19 05:11 Ordered CULTURE SPUTUM + SMEAR [RM] Stat Lab 02/14/19 15:19 Ordered TROPONIN I [CHEM] Stat Lab 02/14/19 18:00 Ordered TROPONIN I [CHEM] Timed Lab 02/15/19 00:00 Ordered UA RFX MACKENZIE AND CULT IF INDIC [URIN] Stat Lab 02/14/19 12:28 Ordered Acetaminophen [Tylenol] Med 02/14/19 15:16 Ordered 650 mg PO Q4H PRN Aspirin Med 02/15/19 09:00 Ordered 81 mg PO DAILY Famotidine [Pepcid] Med 02/14/19 21:00 Ordered 20 mg PO BID Ferrous Sulfate Med 02/15/19 09:00 Ordered 324 mg PO DAILY Levofloxacin/Dextrose 5%-Water [Levaquin in D5W 750 MG/ Med 02/14/19 15:30 Ordered 150 ML] 750 mg Premix Bag 1 bag IV Q24H Metoprolol Tartrate [Metoprolol Tartrate] Med 02/14/19 21:00 Ordered 37.5 mg PO BID Ondansetron [Zofran] Med 02/14/19 15:16 Ordered 4 mg IVPUSH Q4H PRN Warfarin [Coumadin] Med 02/15/19 09:00 Ordered 2.5 mg PO DAILY atorvaSTATin [Lipitor] Med 02/14/19 21:00 Ordered 10 mg PO BEDTIME traMADol [Ultram] Med 02/14/19 15:21 Ordered 50 mg PO Q4H PRN Resuscitation Status Stat Resus Stat 02/14/19 15:16 Ordered Medication Orders Acetaminophen (Tylenol) 650 mg PO Q4H PRN PRN Reason: Pain/Fever Aspirin (Aspirin) 81 mg PO DAILY [facility] Atorvastatin Calcium (Lipitor) 10 mg PO BEDTIME [facility] Famotidine (Pepcid) 20 mg PO BID [facility] Levofloxacin/Dextrose 750 mg/ (Premix) 150 mls @ 100 mls/hr IV Q24H [facility] Non-Formulary Medication (Ferrous Sulfate) 324 mg PO DAILY [facility] Non-Formulary Medication (Metoprolol Tartrate [Metoprolol Tartrate]) 37.5 mg PO BID [facility] Ondansetron HCl (Zofran) 4 mg IVPUSH Q4H PRN PRN Reason: Nausea/Vomiting Tramadol HCl (Ultram) 50 mg PO Q4H PRN PRN Reason: Pain Warfarin Sodium (Coumadin) 2.5 mg PO DAILY [facility] Assessment/Plan Comment:: 1. Admit for observation 2. Code status- Full 3. Vitals per routine 4. I/Os strict 5. Diet- heart healthy 6. DVT prophylaxis- on Coumadin 7. Elevated BNP with concern for CHF exacerbation- has never been diagnosed with CHF in the past, will obtain echo, strict I/Os, daily weights, FR of 1.5 L , monitor on telemetry. He received 40 mg of lasix in the ER. Reassess the need for additional lasix dose tomorrow. 8. Elevated troponin with recent cardiac surgery- will trend troponin, monitor on telemetry 9. Possible CAP- possible pneumonia on CXR and WBC of 22. Start on Levaquin, encourage incentive spirometer, and obtain sputum culture. 10. Recent aortic dissection with repair- continue on home meds. Spoke with his surgeon, Dr. Villeda in [place] who agrees with the plan to obtain echo and diurese. He states we should gently diurese him. When asked about the troponins he stated "it means nothing with recent surgery". Dr. Villeda stated it is common for these types of patients to feel short of breath for months after surgery.
[2019-02-14] MEDS ORDERED: Levofloxacin/Dextrose 5%-Water 750 MG in Premix Bag 1 BAG IV SCH (15:30)
[2019-02-14] MEDS: traMADol 50 MG Tab PO PRN ×2 (16:31→20:41)
[2019-02-14] MEDS: Metoprolol Tartrate 25 MG Tab PO SCH (20:40)
[2019-02-14] MEDS: atorvaSTATin 10 MG Tab PO SCH (20:41)
[2019-02-14] MEDS: Famotidine 20 MG Tab PO SCH (20:44)
[2019-02-15] MEDS: Acetaminophen 325 MG Tab PO PRN ×3 (00:05→14:58)
[2019-02-15] MEDS: traMADol 50 MG Tab PO PRN ×4 (02:40→21:43)
[2019-02-15 06:53] LABS: BLOOD UREA NITROGEN,BUN 19 mg/dL (7.0-18.0); CARBON DIOXIDE,CO2 26.4 mmol/L (21.0-32.0); CHLORIDE,CL 96 mmol/L (98-107); GLUCOSE RANDOM 140 mg/dL (74-106); POTASSIUM,K 4.7 mmol/L (3.5-5.1); SODIUM,NA 131 mmol/L (136-148)
[2019-02-15] MEDS: Ferrous Sulfate 325 MG Tab PO SCH (08:42)
[2019-02-15] MEDS: Aspirin 81 MG Tab.Chew PO SCH (08:42)
[2019-02-15] MEDS: Famotidine 20 MG Tab PO SCH ×2 (08:42→21:37)
[2019-02-15] MEDS: Metoprolol Tartrate 25 MG Tab PO SCH ×2 (08:43→21:37)
[2019-02-15] MEDS: Piperacillin/Tazobactam 4.5 GM in Sodium Chloride 0.9% 100 ML IV SCH ×3 (08:44→21:36)
--- NOTE | 2019-02-15 12:11 | PCM.PN ---
- General Info Date of Service: 02/15/19 - Review of Systems Systems Review Comment:: shortness of breath improving, able to walk in hallway without getting as short of breath - Patient Data Vitals - Most Recent: Last Vital Signs Temp 36.6 C 02/15/19 08:15 Pulse 91 02/15/19 08:43 Resp 16 02/15/19 08:15 BP 131/62 02/15/19 08:43 Pulse Ox 92 L 02/15/19 08:15 Weight - Most Recent: 82.826 kg I&O - Last 24 Hours: Intake & Output 02/14/19 02/15/19 02/15/19 22:59 06:59 14:59 Intake Total 500 Output Total 600 700 Balance -600 -200 Lab Results Last 24 Hours: Laboratory Results - last 24 hr 02/14/19 02/14/19 02/14/19 Range/Units 12:20 12:20 12:20 WBC 21.83 H (4.0-11.0) K/uL RBC 3.29 L (4.50-5.90) M/uL Hgb 10.0 L (13.0-17.0) g/dL Hct 30.4 L (38.0-50.0) % MCV 92.4 (80.0-98.0) fL MCH 30.4 (27.0-32.0) pg MCHC 32.9 (31.0-37.0) g/dL RDW Std Deviation 45.3 (28.0-62.0) fl RDW Coeff of Daniel 14 (11.0-15.0) % Plt Count 536 H (150-400) K/uL MPV 9.50 (7.40-12.00) fL Neut % (Auto) (48.0-80.0) % Lymph % (Auto) (16.0-40.0) % [place] % (Auto) (0.0-15.0) % Eos % (Auto) (0.0-7.0) % Baso % (Auto) (0.0-1.5) % Neut # (Auto) (1.4-5.7) K/uL Lymph # (Auto) (0.6-2.4) K/uL [place] # (Auto) (0.0-0.8) K/uL Eos # (Auto) (0.0-0.7) K/uL Baso # (Auto) (0.0-0.1) K/uL Add Manual Diff YES Neutrophils % (Manual) 86 H (48.0-80.0) % Lymphocytes % (Manual) 7 L (16.0-40.0) % Monocytes % (Manual) 7 (0.0-15.0) % Nucleated RBC % 0.0 /100WBC Absolute Seg Neuts 18.8 H (1.4-5.7) Lymphocytes # (Manual) 1.5 (0.6-2.4) Monocytes # (Manual) 1.5 H (0.0-0.8) Nucleated RBCs # 0 K/uL INR 2.87 Sodium 129 L (136-148) mmol/L Potassium 5.1 (3.5-5.1) mmol/L Chloride 95 L (98-107) mmol/L Carbon Dioxide 26.4 (21.0-32.0) mmol/L BUN 22 H (7.0-18.0) mg/dL Creatinine 1.1 (0.8-1.3) mg/dL Est Cr Clr Drug Dosing 82.72 mL/min Estimated GFR (MDRD) > 60.0 ml/min Glucose 129 H (74-106) mg/dL Calcium 8.5 (8.5-10.1) mg/dL Total Bilirubin 0.5 (0.2-1.0) mg/dL AST 70 H (15-37) IU/L ALT 88 H (14-63) IU/L Alkaline Phosphatase 134 H (46-116) U/L Troponin I 0.272 H* (0.000-0.056) ng/mL B-Natriuretic Peptide (<100) PG/ML Total Protein 6.8 (6.4-8.2) g/dL Albumin 2.4 L (3.4-5.0) g/dL Globulin 4.4 H (2.6-4.0) g/dL Albumin/Globulin Ratio 0.6 L (0.9-1.6) Urine Color Urine Appearance Urine pH (5.0-8.0) Ur Specific [place] (1.001-1.035) Urine Protein (NEGATIVE) mg/dL Urine Glucose (UA) (NEGATIVE) mg/dL Urine Ketones (NEGATIVE) mg/dL Urine Occult Blood (NEGATIVE) Urine Nitrite (NEGATIVE) Urine Bilirubin (NEGATIVE) Urine Urobilinogen (<2.0) EU/dL Ur Leukocyte Esterase (NEGATIVE) Urine RBC (0-2/HPF) Urine WBC (0-5/HPF) Ur Epithelial Cells (NONE-FEW) Urine Bacteria (NEGATIVE) Urine Mucus (NONE-MOD) 02/14/19 02/14/19 02/14/19 Range/Units 12:20 16:20 18:02 WBC (4.0-11.0) K/uL RBC (4.50-5.90) M/uL Hgb (13.0-17.0) g/dL Hct (38.0-50.0) % MCV (80.0-98.0) fL MCH (27.0-32.0) pg MCHC (31.0-37.0) g/dL RDW Std Deviation (28.0-62.0) fl RDW Coeff of Daniel (11.0-15.0) % Plt Count (150-400) K/uL MPV (7.40-12.00) fL Neut % (Auto) (48.0-80.0) % Lymph % (Auto) (16.0-40.0) % [place] % (Auto) (0.0-15.0) % Eos % (Auto) (0.0-7.0) % Baso % (Auto) (0.0-1.5) % Neut # (Auto) (1.4-5.7) K/uL Lymph # (Auto) (0.6-2.4) K/uL [place] # (Auto) (0.0-0.8) K/uL Eos # (Auto) (0.0-0.7) K/uL Baso # (Auto) (0.0-0.1) K/uL Add Manual Diff Neutrophils % (Manual) (48.0-80.0) % Lymphocytes % (Manual) (16.0-40.0) % Monocytes % (Manual) (0.0-15.0) % Nucleated RBC % /100WBC Absolute Seg Neuts (1.4-5.7) Lymphocytes # (Manual) (0.6-2.4) Monocytes # (Manual) (0.0-0.8) Nucleated RBCs # K/uL INR Sodium (136-148) mmol/L Potassium (3.5-5.1) mmol/L Chloride (98-107) mmol/L Carbon Dioxide (21.0-32.0) mmol/L BUN (7.0-18.0) mg/dL Creatinine (0.8-1.3) mg/dL Est Cr Clr Drug Dosing mL/min Estimated GFR (MDRD) ml/min Glucose (74-106) mg/dL Calcium (8.5-10.1) mg/dL Total Bilirubin (0.2-1.0) mg/dL AST (15-37) IU/L ALT (14-63) IU/L Alkaline Phosphatase (46-116) U/L Troponin I 0.196 H* (0.000-0.056) ng/mL B-Natriuretic Peptide 654 H (<100) PG/ML Total Protein (6.4-8.2) g/dL Albumin (3.4-5.0) g/dL Globulin (2.6-4.0) g/dL Albumin/Globulin Ratio (0.9-1.6) Urine Color YELLOW Urine Appearance CLEAR Urine pH 6.5 (5.0-8.0) Ur Specific [place] 1.015 (1.001-1.035) Urine Protein TRACE H (NEGATIVE) mg/dL Urine Glucose (UA) NEGATIVE (NEGATIVE) mg/dL Urine Ketones NEGATIVE (NEGATIVE) mg/dL Urine Occult Blood MODERATE H (NEGATIVE) Urine Nitrite NEGATIVE (NEGATIVE) Urine Bilirubin NEGATIVE (NEGATIVE) Urine Urobilinogen 0.2 (<2.0) EU/dL Ur Leukocyte Esterase NEGATIVE (NEGATIVE) Urine RBC 2-5 (0-2/HPF) Urine WBC 0-2 (0-5/HPF) Ur Epithelial Cells OCCASIONAL (NONE-FEW) Urine Bacteria FEW (NEGATIVE) Urine Mucus LIGHT (NONE-MOD) 02/15/19 02/15/19 02/15/19 Range/Units 00:30 06:05 06:05 WBC 19.65 H (4.0-11.0) K/uL RBC 3.23 L (4.50-5.90) M/uL Hgb 9.6 L (13.0-17.0) g/dL Hct 29.6 L (38.0-50.0) % MCV 91.6 (80.0-98.0) fL MCH 29.7 (27.0-32.0) pg MCHC 32.4 (31.0-37.0) g/dL RDW Std Deviation 45.0 (28.0-62.0) fl RDW Coeff of Daniel 14 (11.0-15.0) % Plt Count 551 H (150-400) K/uL MPV 9.30 (7.40-12.00) fL Neut % (Auto) 87.1 H (48.0-80.0) % Lymph % (Auto) 6.3 L (16.0-40.0) % [place] % (Auto) 6.5 (0.0-15.0) % Eos % (Auto) 0.0 (0.0-7.0) % Baso % (Auto) 0.1 (0.0-1.5) % Neut # (Auto) 17.1 H (1.4-5.7) K/uL Lymph # (Auto) 1.2 (0.6-2.4) K/uL [place] # (Auto) 1.3 H (0.0-0.8) K/uL Eos # (Auto) 0.0 (0.0-0.7) K/uL Baso # (Auto) 0.0 (0.0-0.1) K/uL Add Manual Diff Neutrophils % (Manual) (48.0-80.0) % Lymphocytes % (Manual) (16.0-40.0) % Monocytes % (Manual) (0.0-15.0) % Nucleated RBC % 0.0 /100WBC Absolute Seg Neuts (1.4-5.7) Lymphocytes # (Manual) (0.6-2.4) Monocytes # (Manual) (0.0-0.8) Nucleated RBCs # 0 K/uL INR Sodium 131 L (136-148) mmol/L Potassium 4.7 (3.5-5.1) mmol/L Chloride 96 L (98-107) mmol/L Carbon Dioxide 26.4 (21.0-32.0) mmol/L BUN 19 H (7.0-18.0) mg/dL Creatinine 0.9 (0.8-1.3) mg/dL Est Cr Clr Drug Dosing 98.20 mL/min Estimated GFR (MDRD) > 60.0 ml/min Glucose 140 H (74-106) mg/dL Calcium 8.4 L (8.5-10.1) mg/dL Total Bilirubin 0.5 (0.2-1.0) mg/dL AST 51 H (15-37) IU/L ALT 75 H (14-63) IU/L Alkaline Phosphatase 114 (46-116) U/L Troponin I 0.113 H* (0.000-0.056) ng/mL B-Natriuretic Peptide (<100) PG/ML Total Protein 6.8 (6.4-8.2) g/dL Albumin 2.2 L (3.4-5.0) g/dL Globulin 4.6 H (2.6-4.0) g/dL Albumin/Globulin Ratio 0.5 L (0.9-1.6) Urine Color Urine Appearance Urine pH (5.0-8.0) Ur Specific [place] (1.001-1.035) Urine Protein (NEGATIVE) mg/dL Urine Glucose (UA) (NEGATIVE) mg/dL Urine Ketones (NEGATIVE) mg/dL Urine Occult Blood (NEGATIVE) Urine Nitrite (NEGATIVE) Urine Bilirubin (NEGATIVE) Urine Urobilinogen (<2.0) EU/dL Ur Leukocyte Esterase (NEGATIVE) Urine RBC (0-2/HPF) Urine WBC (0-5/HPF) Ur Epithelial Cells (NONE-FEW) Urine Bacteria (NEGATIVE) Urine Mucus (NONE-MOD) 02/15/19 Range/Units 06:05 WBC (4.0-11.0) K/uL RBC (4.50-5.90) M/uL Hgb (13.0-17.0) g/dL Hct (38.0-50.0) % MCV (80.0-98.0) fL MCH (27.0-32.0) pg MCHC (31.0-37.0) g/dL RDW Std Deviation (28.0-62.0) fl RDW Coeff of Daniel (11.0-15.0) % Plt Count (150-400) K/uL MPV (7.40-12.00) fL Neut % (Auto) (48.0-80.0) % Lymph % (Auto) (16.0-40.0) % [place] % (Auto) (0.0-15.0) % Eos % (Auto) (0.0-7.0) % Baso % (Auto) (0.0-1.5) % Neut # (Auto) (1.4-5.7) K/uL Lymph # (Auto) (0.6-2.4) K/uL [place] # (Auto) (0.0-0.8) K/uL Eos # (Auto) (0.0-0.7) K/uL Baso # (Auto) (0.0-0.1) K/uL Add Manual Diff Neutrophils % (Manual) (48.0-80.0) % Lymphocytes % (Manual) (16.0-40.0) % Monocytes % (Manual) (0.0-15.0) % Nucleated RBC % /100WBC Absolute Seg Neuts (1.4-5.7) Lymphocytes # (Manual) (0.6-2.4) Monocytes # (Manual) (0.0-0.8) Nucleated RBCs # K/uL INR 3.36 Sodium (136-148) mmol/L Potassium (3.5-5.1) mmol/L Chloride (98-107) mmol/L Carbon Dioxide (21.0-32.0) mmol/L BUN (7.0-18.0) mg/dL Creatinine (0.8-1.3) mg/dL Est Cr Clr Drug Dosing mL/min Estimated GFR (MDRD) ml/min Glucose (74-106) mg/dL Calcium (8.5-10.1) mg/dL Total Bilirubin (0.2-1.0) mg/dL AST (15-37) IU/L ALT (14-63) IU/L Alkaline Phosphatase (46-116) U/L Troponin I (0.000-0.056) ng/mL B-Natriuretic Peptide (<100) PG/ML Total Protein (6.4-8.2) g/dL Albumin (3.4-5.0) g/dL Globulin (2.6-4.0) g/dL Albumin/Globulin Ratio (0.9-1.6) Urine Color Urine Appearance Urine pH (5.0-8.0) Ur Specific [place] (1.001-1.035) Urine Protein (NEGATIVE) mg/dL Urine Glucose (UA) (NEGATIVE) mg/dL Urine Ketones (NEGATIVE) mg/dL Urine Occult Blood (NEGATIVE) Urine Nitrite (NEGATIVE) Urine Bilirubin (NEGATIVE) Urine Urobilinogen (<2.0) EU/dL Ur Leukocyte Esterase (NEGATIVE) Urine RBC (0-2/HPF) Urine WBC (0-5/HPF) Ur Epithelial Cells (NONE-FEW) Urine Bacteria (NEGATIVE) Urine Mucus (NONE-MOD) Med Orders - Current: Current Medications Acetaminophen (Tylenol) 650 mg PO Q4H PRN PRN Reason: Pain/Fever Last Admin: 02/15/19 11:07 Dose: 650 mg Aspirin (Aspirin) 81 mg PO DAILY [facility] Last Admin: 02/15/19 08:42 Dose: 81 mg Atorvastatin Calcium (Lipitor) 10 mg PO BEDTIME [facility] Last Admin: 02/14/19 20:41 Dose: 10 mg Famotidine (Pepcid) 20 mg PO BID [facility] Last Admin: 02/15/19 08:42 Dose: 20 mg Ferrous Sulfate (Ferrous Sulfate) 325 mg PO DAILY [facility] Last Admin: 02/15/19 08:42 Dose: 325 mg Piperacillin Sod/Tazobactam (Sod 4.5 gm/ Sodium Chloride) 100 mls @ 200 mls/hr IV Q6H [facility] Last Admin: 02/15/19 08:44 Dose: 200 mls/hr Metoprolol Tartrate (Lopressor) 37.5 mg PO BID [facility] Last Admin: 02/15/19 08:43 Dose: 37.5 mg Ondansetron HCl (Zofran) 4 mg IVPUSH Q4H PRN PRN Reason: Nausea/Vomiting Tramadol HCl (Ultram) 50 mg PO Q4H PRN PRN Reason: Pain Last Admin: 02/15/19 08:42 Dose: 50 mg Warfarin Sodium (Coumadin Ask) 0 each PO DAILY@1400 [facility] Discontinued Medications Albuterol/Ipratropium (Duoneb 3.0-0.5 Mg/3 Ml) 3 ml NEB ONETIME ONE Stop: 02/14/19 14:38 Last Admin: 02/14/19 15:04 Dose: 3 ml Furosemide (Lasix) 40 mg IVPUSH NOW ONE Stop: 02/14/19 14:38 Last Admin: 02/14/19 15:08 Dose: 40 mg Sodium Chloride (Normal Saline) 1,000 mls @ 999 mls/hr IV STAT ONE Stop: 02/14/19 13:31 Last Admin: 02/14/19 12:44 Dose: 999 mls/hr Levofloxacin/Dextrose 750 mg/ (Premix) 150 mls @ 100 mls/hr IV Q24H [facility] Last Admin: 02/14/19 16:03 Dose: 100 mls/hr Methylprednisolone Sodium Succinate (Solu-Medrol) 125 mg IVPUSH ONETIME ONE Stop: 02/14/19 14:38 Last Admin: 02/14/19 15:14 Dose: 125 mg - Exam General: Alert, Oriented Lungs: Clear to Auscultation, Normal Respiratory Effort Cardiovascular: Regular Rate, Regular Rhythm GI/Abdominal Exam: Soft, Non-Tender Extremities: Non-Tender, No Pedal Edema - Problem List Review Problem List Initiated/Reviewed/Updated: Yes - My Orders Last 24 Hours: My Active Orders 02/15/19 Echo Comp wo Cont [US] Stat 02/15/19 12:04 RT Aerosol Therapy [RC] ASDIRECTED 02/15/19 12:15 Furosemide [Lasix] 40 mg IVPUSH DAILY 02/15/19 14:00 Albuterol/Ipratropium [DuoNeb 3.0-0.5 MG/3 ML] 3 ml NEB Q8HRRT 02/16/19 05:00 INR,PT,PROTHROMBIN TIME [COAG] DAILY 02/17/19 05:00 INR,PT,PROTHROMBIN TIME [COAG] DAILY 02/18/19 05:00 INR,PT,PROTHROMBIN TIME [COAG] DAILY 02/19/19 05:00 INR,PT,PROTHROMBIN TIME [COAG] DAILY 02/20/19 05:00 INR,PT,PROTHROMBIN TIME [COAG] DAILY - Plan Plan:: 58 yo male s/p aortic dissection repair who presented with worsening shortness of breath after discharge. He is admitted for CHF exacerbation. Echocardiogram is pending. Patient's symptoms have been improving with diuresis. Mildly elevated troponin likely due to recent cardiac surgery. Patient is on Zosyn due to concern of possible pneumonia due to x-ray findings but this is felt to be less likely an infectious process. We will continue metoprolol, ASA, and Coumadin
[2019-02-15] MEDS ORDERED: Furosemide 40 MG/4 ML VIAL IVPUSH SCH (12:15)
[2019-02-15] MEDS: Albuterol/Ipratropium 3.0-0.5 MG/3 ML Neb Soln NEB SCH ×2 (13:12→21:24)
[2019-02-15] MEDS ORDERED: Albuterol/Ipratropium 3.0-0.5 MG/3 ML Neb Soln NEB PRN (13:25)
--- NOTE | 2019-02-15 18:21 | CT ---
INDICATION: Shortness of breath starting yesterday. Recent aortic dissection repair [address] CHEST WITHOUT CONTRAST TECHNIQUE: Multidetector CT imaging was performed through the chest without intravenous contrast administration. Coronal and sagittal reconstructions were generated. COMPARISON: 02/01/[address] FINDINGS: Lungs and airways: Nonspecific patchy ground-glass infiltrate in the left upper lobe. Atelectasis involving the right middle lobe and the basilar portions of both lower lobes. Pleura and pleural spaces: New moderate-sized bilateral pleural effusions. Heart and mediastinum: Normal heart size. New moderate to large pericardial effusion measuring up to 3.1 centimeters in thickness. Interval aortic valve replacement. Mediastinal surgical clips. New large collection of fluid surrounding the ascending aorta, to the right of the ascending aorta measuring up to 6 centimeters in thickness. Small foci of hyperdensity within this fluid may represent blood clots. Vascular structures: Significantly limited evaluation due to lack of IV contrast. Interval decrease in dilation of the ascending aorta, now measuring 4.2 centimeters in AP diameter compared to 5.8 centimeters previously. The previously seen aortic dissection cannot be satisfactorily evaluated due to lack of IV contrast. Chest wall and axillae: No mass or axillary lymphadenopathy. Osseous structures: Interval median sternotomy. Nondisplaced fracture of the right 1st rib. Upper abdomen: Unremarkable. IMPRESSION: 1. Interval postoperative changes of median sternotomy and aortic valve replacement. Decreased dilation of the ascending aorta. 2. New large mediastinal fluid collection surrounding the ascending aorta, likely containing partially clotted blood. 3. New moderately large pericardial effusion. 4. New moderate bilateral pleural effusions and lower lung atelectasis. 5. Nonspecific patchy ground glass density in the left upper lobe. Pneumonia is not excluded. FOZIA NAVARRO MD [facility] Dictated by Kwesi Navarro MD @ 02/15/2019 6:18:20 PM Dictated by: Kwesi Navarro MD @ 02/15/2019 18:18:49 (Electronically Signed)
--- NOTE | 2019-02-15 18:57 | PCM.SN ---
- Free Text/Narrative Note: I spoke with Dr Villeda regarding the results of the Echocardiogram that showed partial collapse and limited RV filling suggestive of possible tamponade. I also told him of the large pericardial effusion and large mediastinal fluid collection surrounding the ascending aorta. Dr. Villeda recommended not over diuresing and repeating an Echocardiogram in a few days. The patient is feeling better and plans on driving to [place] tomorrow for a follow up Clinic appointment tomorrow. Dr. Villeda was ok with waiting to repeat echocardiogram unit his follow up appointment Friday. I consulted Dr. Lara who stated the patient does not clinically appear to have tamponade and recommended starting colchicine.
[2019-02-15] MEDS: atorvaSTATin 10 MG Tab PO SCH (21:37)
[2019-02-15] MEDS: Colchicine 0.6 MG Tab PO SCH (21:44)
[2019-02-16] MEDS: traMADol 50 MG Tab PO PRN ×2 (02:38→07:20)
[2019-02-16] MEDS: Piperacillin/Tazobactam 4.5 GM in Sodium Chloride 0.9% 100 ML IV SCH (02:40)
[2019-02-16] MEDS: Albuterol/Ipratropium 3.0-0.5 MG/3 ML Neb Soln NEB SCH (06:23)
[2019-02-16 08:06] VITALS: BP 133/62; PULSE 92
[2019-02-16] MEDS: Metoprolol Tartrate 25 MG Tab PO SCH (08:40)
[2019-02-16] MEDS: Aspirin 81 MG Tab.Chew PO SCH (08:42)
[2019-02-16] MEDS: Famotidine 20 MG Tab PO SCH (08:42)
[2019-02-16] MEDS: Ferrous Sulfate 325 MG Tab PO SCH (08:42)
[2019-02-16] MEDS: Colchicine 0.6 MG Tab PO SCH (08:43)
--- NOTE | 2019-02-16 09:04 | PCM.DCSUM1 ---
Discharge Summary - Discharge Data Discharge Date: 02/16/19 Discharge Disposition: Home, Self-Care 01 Condition: Fair - Referral to Home Health Primary Care Physician: PCP None - Patient Summary/Data Hospital Course: The patient is a 58 year old male with past medical history of recent surgical repair of a Type A aortic dissection. HE was discharged from [facility] on 02/09/19. Since then he has became progressively short of breath and weak. His initial work up including a white count of 22, hemoglobin of 10, INR of 2.8 , Sodium of 129, potassium of 5.1, normal kidney function, troponin of 0.272 and BNP of 654. EKG showed sinus rhythm with PVCs. CXR showed bilateral lower lobe atelectasis and/0r infiltrate with bilateral pleural effusion L>R, and increased cardiomegaly. In the ER he was given IVF, 40 mg of Lasix, 125 mg of solumedrol, and duoneb. On the medical floor he received another dose of 40mg of lasix the following day. He was treated Zosyn for possible pneumonia seen on radiology images but with lack of cough and fever pneumonia was thought to be unlikely. He did have improvement of his symptoms and was able to ambulate the floor. He did have an echocardiogram which reported LV of 55 to 60%, partial collapse and limited RV filling suggestive of possible tamponade. Dr. Lara was consulted and did not feel patient had tamponade as he was clinically improving. Ct scan shwed large pericardial effusion and large mediastinal fluid collection surrounding the ascending aorta likely containing partially clotted blood. Dr. Villeda was called on admission and then with the results of Echocardiogram and CT scan. The plan is for them to follow up in [facility] in Clinic today. - Discharge Plan Home Medications: Home Meds Famotidine 20 mg PO BID 12/13/15 [History] atorvaSTATin Calcium [Atorvastatin Calcium] 10 mg PO BEDTIME 12/13/15 [History] Acetaminophen [Tylenol] 325 mg PO Q4HR PRN 02/14/19 [History] Aspirin 81 mg PO DAILY 02/14/19 [History] Ferrous Sulfate 324 mg PO DAILY 02/14/19 [History] Metoprolol Tartrate 37.5 mg PO BID 02/14/19 [History] Warfarin [Coumadin] 2.5 mg PO DAILY 02/14/19 [History] cefUROXime axetil [Cefuroxime] 500 mg PO BID 02/14/19 [History] traMADol [Ultram] 50 mg PO Q4H PRN 02/14/19 [History] Polyethylene Glycol 3350 [MiraLAX] 17 gm PO DAILY 02/15/19 [History] Patient Handouts: Heart Failure, [id number] - Discharge Summary/Plan Comment DC Time >30 min.: No - Patient Data Vitals - Most Recent: Last Vital Signs Temp 36.2 C 02/16/19 08:00 Pulse 92 02/16/19 08:40 Resp 18 02/16/19 08:00 BP 133/62 02/16/19 08:40 Pulse Ox 93 L 02/16/19 08:00 Weight - Most Recent: 80.377 kg I&O - Last 24 hours: Intake & Output 02/15/19 02/16/19 02/16/19 22:59 06:59 14:59 Intake Total 900 800 Output Total 2050 1350 Balance -1150 -550 Lab Results - Last 24 hrs: Laboratory Results - last 24 hr 02/16/19 Range/Units 06:16 INR 3.06 [place]ACK[facility]ZIE Results - Last 24 hrs: Microbiology 02/15/19 07:45 Gram Stain - Preliminary Sputum - Expectorated Med Orders - Current: Current Medications Acetaminophen (Tylenol) 650 mg PO Q4H PRN PRN Reason: Pain/Fever Last Admin: 02/15/19 14:58 Dose: 650 mg Albuterol/Ipratropium (Duoneb 3.0-0.5 Mg/3 Ml) 3 ml NEB Q8HRRT COUNTS INCLUDE 234 BEDS AT THE [facility] Last Admin: 02/16/19 06:23 Dose: 3 ml Albuterol/Ipratropium (Duoneb 3.0-0.5 Mg/3 Ml) 3 ml NEB Q2H PRN PRN Reason: Shortness of Breath Aspirin (Aspirin) 81 mg PO DAILY COUNTS INCLUDE 234 BEDS AT THE [facility] Last Admin: 02/16/19 08:42 Dose: 81 mg Atorvastatin Calcium (Lipitor) 10 mg PO BEDTIME COUNTS INCLUDE 234 BEDS AT THE [facility] Last Admin: 02/15/19 21:37 Dose: 10 mg Colchicine (Colcrys) 0.6 mg PO BID COUNTS INCLUDE 234 BEDS AT THE [facility] Last Admin: 02/16/19 08:43 Dose: 0.6 mg Famotidine (Pepcid) 20 mg PO BID COUNTS INCLUDE 234 BEDS AT THE [facility] Last Admin: 02/16/19 08:42 Dose: 20 mg Ferrous Sulfate (Ferrous Sulfate) 325 mg PO DAILY [facility]S INCLUDE 234 BEDS AT [facility] Last Admin: 02/16/19 08:42 Dose: 325 mg Piperacillin Sod/Tazobactam (Sod 4.5 gm/ Sodium Chloride) 100 mls @ 200 mls/hr IV Q6H COUNTS INCLUDE 234 BEDS AT THE [facility] Last Admin: 02/16/19 02:40 Dose: 200 mls/hr Metoprolol Tartrate (Lopressor) 37.5 mg PO BID COUNTS INCLUDE 234 BEDS AT THE [facility] Last Admin: 02/16/19 08:40 Dose: 37.5 mg Ondansetron HCl (Zofran) 4 mg IVPUSH Q4H PRN PRN Reason: Nausea/Vomiting Tramadol HCl (Ultram) 50 mg PO Q4H PRN PRN Reason: Pain Last Admin: 02/16/19 07:20 Dose: 50 mg Warfarin Sodium (Coumadin Ask) 0 each PO DAILY@1400 COUNTS INCLUDE 234 BEDS AT [facility] Last Admin: 02/15/19 14:20 Dose: Not Given Warfarin Sodium (Coumadin) 2 mg PO 02/16/19@1400 COUNTS INCLUDE 234 BEDS AT THE [facility] Stop: 02/16/19 14:01 Discontinued Medications Albuterol/Ipratropium (Duoneb 3.0-0.5 Mg/3 Ml) 3 ml NEB ONETIME ONE Stop: 02/14/19 14:38 Last Admin: 02/14/19 15:04 Dose: 3 ml Furosemide (Lasix) 40 mg IVPUSH NOW ONE Stop: 02/14/19 14:38 Last Admin: 02/14/19 15:08 Dose: 40 mg Furosemide (Lasix) 40 mg IVPUSH DAILY COUNTS INCLUDE 234 BEDS AT THE [facility] Last Admin: 02/15/19 12:56 Dose: 40 mg Sodium Chloride (Normal Saline) 1,000 mls @ 999 mls/hr IV STAT ONE Stop: 02/14/19 13:31 Last Admin: 02/14/19 12:44 Dose: 999 mls/hr Levofloxacin/Dextrose 750 mg/ (Premix) 150 mls @ 100 mls/hr IV Q24H COUNTS INCLUDE 234 BEDS AT THE [facility] Last Admin: 02/14/19 16:03 Dose: 100 mls/hr Methylprednisolone Sodium Succinate (Solu-Medrol) 125 mg IVPUSH ONETIME ONE Stop: 02/14/19 14:38 Last Admin: 02/14/19 15:14 Dose: 125 mg
[2019-02-16] MEDS ORDERED: Warfarin 2 MG Tab PO SCH (14:00)
--- NOTE | 2019-02-16 16:13 | ECHO ---
The echocardiogram report can be seen in this patient's EMR (Electronic Medical Record) in the REPORTS section. The echocardiogram has also been scanned into PACS and can be seen there as well. PASTOR
== END 2019-02-16 09:00 | disposition home or self-care (01) ==
LOC: MW.ED 12:15 → MW.MS 15:05
PROVIDERS: ADMIT Internal Medicine; ATTEND Internal Medicine
DX: I11.0 Hypertensive heart disease with heart failure (principal); I50.9 Heart failure, unspecified; R91.8 Other nonspecific abnormal finding of lung field; I31.3 Pericardial effusion (noninflammatory); E87.1 Hypo-osmolality and hyponatremia; E78.00 Pure hypercholesterolemia, unspecified; D64.9 Anemia, unspecified; Z79.82 Long term (current) use of aspirin; Z79.01 Long term (current) use of anticoagulants; Z79.899 Other long term (current) drug therapy; Z98.890 Other specified postprocedural states
CPT/HCPCS: 36415; 71045; 71250; 80053; 81001; 83880; 84484; 85025; 85610; 87070; 87205; 93005; 93306; 94640; 96361; 96365; 96375; 96376; 99285; A9270; G0378; J1940; J1956; J2543; J2930; J7030; J7040; 96374; J7620-GY

== ENCOUNTER 2019-04-18 15:11 | Emergency (ER) | payer BC ==
[2019-04-18] MEDS ORDERED: Diphtheria,Pertussis(Acell),Tetanus Vaccine 0.5 ML Syringe IM ONE (15:40)
--- NOTE | 2019-04-18 15:43 | EDM.PDOC ---
ED HPI GENERAL MEDICAL PROBLEM - General Chief Complaint: Bite:Animal, Insect Stated Complaint: DOG BIT Time Seen by Provider: 04/18/19 15:33 Source of Information: Reports: Patient History Limitations: Reports: No Limitations - History of Present Illness INITIAL COMMENTS - FREE TEXT/NARRATIVE: Presents reporting he was his dog and his neighbors dog who were fighting and his neighbors dog bit him in the hand while his hand was around his dog's collar. The neighbors dog vaccines are up-to-date. Patient states he does not know when his last tetanus vaccine was. He did have a aortic dissection 2 months ago and is currently on warfarin. Law enforcement is here to investigate. Right Hand Pain Score (Numeric/FACES): 2 - Related Data Allergies Allergy/AdvReac Type Severity Reaction Status Date / Time No Known Allergies Allergy Verified 04/18/19 15:24 Home Meds: Home Meds Famotidine 20 mg PO BID 12/13/15 [History] atorvaSTATin Calcium [Atorvastatin Calcium] 10 mg PO BEDTIME 12/13/15 [History] Acetaminophen [Tylenol] 325 mg PO Q4HR PRN 02/14/19 [History] Aspirin 81 mg PO DAILY 02/14/19 [History] Ferrous Sulfate 324 mg PO DAILY 02/14/19 [History] Metoprolol Tartrate 37.5 mg PO BID 02/14/19 [History] Warfarin [Coumadin] 2.5 mg PO DAILY 02/14/19 [History] cefUROXime axetil [Cefuroxime] 500 mg PO BID 02/14/19 [History] traMADol [Ultram] 50 mg PO Q4H PRN 02/14/19 [History] Polyethylene Glycol 3350 [MiraLAX] 17 gm PO DAILY 02/15/19 [History] Amoxicillin/Potassium Clav [Augmentin 875-125 Tablet] 1 each PO BID #20 tablet 04/18/19 [Rx] Cephalexin [Keflex] 500 mg PO TID 7 Days #20 capsule 04/18/19 [Rx] Past Medical History HEENT History: Reports: None Cardiovascular History: Reports: High Cholesterol, Hypertension Other Cardiovascular History: Type A aortic dissection-repaired 01/2019 Respiratory History: Reports: None Gastrointestinal History: Reports: GERD Genitourinary History: Reports: None Neurological History: Reports: None Psychiatric History: Reports: None Endocrine/Metabolic History: Reports: None Hematologic History: Reports: None Immunologic History: Reports: None Oncologic (Cancer) History: Reports: None Dermatologic History: Reports: None - Infectious Disease History Infectious Disease History: Reports: Chicken Pox, Mumps - Past Surgical History Head Surgeries/Procedures: Reports: None GI Surgical History: Reports: Hernia, Inguinal Male Surgical History: Reports: None Musculoskeletal Surgical History: Reports: Arthroscopic Knee Social & Family History - Family History Family Medical History: Noncontributory - Tobacco Use Smoking Status *Q: Never Smoker - Caffeine Use Caffeine Use: Reports: Coffee - Recreational Drug Use Recreational Drug Use: No ED ROS GENERAL - Review of Systems Review Of Systems: Comprehensive ROS is negative, except as noted in HPI. ED EXAM, ANIMAL BITE - Physical Exam Exam: See Below Exam Limited By: No Limitations General Appearance: Alert, No Apparent Distress Ears: Normal External Exam Nose: Normal Inspection Throat/Mouth: Normal Inspection Head: Atraumatic, Normocephalic Respiratory/Chest: No Respiratory Distress Cardiovascular: Normal Peripheral Pulses Extremities: Normal Inspection, Other (Right dorsal hand: 2.5 cm laceration. Full flex extend all digits without hesitation or limitation. Full range of motion of the wrist without hesitation or limitation. Radial pulse strong.) ED ANIMAL BITE PROCEDURES - Laceration/Wound Repair Right Hand Lac/Wound Length In cm: 2.5 Appearance: Subcutaneous Local Anesthetic Volume: 3cc Closed With: Sutures Suture Size: 4-0 # of Sutures: 3 Suture Type: Nylon, Interrupted, Simple Suture Size: 4-0 Course - Vital Signs Last Recorded V/S: Last Vital Signs Temp 36.8 C 04/18/19 15:21 Pulse 90 04/18/19 15:21 Resp 18 04/18/19 15:21 BP 161/86 H 04/18/19 15:21 Pulse Ox 96 04/18/19 15:21 - Orders/Labs/Meds Orders: Active Orders 24 hr Category Date Time Status Vaccines to be Administered [RC] PER UNIT ROUTINE Care 04/18/19 15:40 Active Meds: Medications Discontinued Medications Generic Name Dose Route Start Last Admin Trade Name Freq PRN Reason Stop Dose Admin Diphtheria/Tetanus/Acell Pertussis 0.5 ml 04/18/19 15:40 04/18/19 15:46 Adacel IM 04/18/19 15:41 0.5 ml .ONCE ONE Administration Lidocaine HCl 5 ml 04/18/19 15:39 04/18/19 15:46 Xylocaine-Mpf 1% INJECT 04/18/19 15:40 5 ml ONETIME ONE Administration Departure - Departure Time of Disposition: 16:12 Disposition: Home, Self-Care 01 Condition: Good Clinical Impression: Dog bite - Discharge Information Referrals: Abhishek Oakley MD [Primary Care Provider] - Forms: ED Department Discharge Additional Instructions: The following information is given to patients seen in the emergency department who are being discharged to home. This information is to outline your options for follow-up care. We provide all patients seen in our emergency department with a follow-up referral. The need for follow-up, as well as the timing and circumstances, are variable depending upon the specifics of your emergency department visit. If you don't have a primary care physician on staff, we will provide you with a referral. We always advise you to contact your personal physician following an emergency department visit to inform them of the circumstance of the visit and for follow-up with them and/or the need for any referrals to a consulting specialist. The emergency department will also refer you to a specialist when appropriate. This referral assures that you have the opportunity for follow-up care with a specialist. All of these measure are taken in an effort to provide you with optimal care, which includes your follow-up. Under all circumstances we always encourage you to contact your private physician who remains a resource for coordinating your care. When calling for follow-up care, please make the office aware that this follow-up is from your recent emergency room visit. If for any reason you are refused follow-up, please contact the [facility] Emergency Department at and asked to speak to the emergency department charge nurse. 1. Take your antibiotic twice daily starting when you pick it up today. 2. Keep wound clean and dry. Watch for signs of infection: Redness, swelling, purulent drainage report promptly 3. Suture removal 14 days - My Orders Last 24 Hours: My Active Orders 04/18/19 15:40 Vaccines to be Administered [RC] PER UNIT ROUTINE - Assessment/Plan Last 24 Hours: My Active Orders 04/18/19 15:40 Vaccines to be Administered [RC] PER UNIT ROUTINE
[2019-04-18] MEDS ORDERED: Bacitracin Oint 1 GM U/D Packet ONE (16:01)
[2019-04-18 16:20] VITALS: BP 135/82; PULSE 82
[2019-04-18] MEDS ORDERED: Bacitracin Oint 28.35 GM Tube TOP SCH (22:00)
== END 2019-04-18 16:19 | disposition home or self-care (01) ==
LOC: MW.ED 15:11
DX: S61.451A Open bite of right hand, initial encounter (principal); E78.00 Pure hypercholesterolemia, unspecified; I10 Essential (primary) hypertension; K21.9 Gastro-esophageal reflux disease without esophagitis; Z79.82 Long term (current) use of aspirin; Z79.899 Other long term (current) drug therapy; Z79.01 Long term (current) use of anticoagulants; Z23 Encounter for immunization; W54.0XXA Bitten by dog, initial encounter
CPT/HCPCS: 12001; 90471; 90715; 99283; J2001

== ENCOUNTER 2019-05-01 12:47 | Emergency (ER) | payer BC ==
[2019-05-01 12:57] VITALS: BP 139/81; PULSE 91
== END 2019-05-01 12:52 | disposition left against medical advice (07) ==
LOC: MW.ED 12:47
DX: Z53.21 Procedure and treatment not carried out due to patient leaving prior to being seen by health care provider (principal)
CPT/HCPCS: 99281